=== PATIENT | female | born 1995 | race Caucasian/White ===

== ENCOUNTER 2022-11-05 01:06 | Inpatient (IN) | payer BC ==
[2022-11-05] MEDS ORDERED: Lactated Ringers 1,000 ML IV SCH (12:30)
[2022-11-05] MEDS ORDERED: Lidocaine 1% 30 ML SDV INJECT PRN (12:30)
[2022-11-05] MEDS ORDERED: Sodium Chloride 0.9% 10 ML Syringe FLUSH PRN (12:30)
[2022-11-05] MEDS ORDERED: Misoprostol 400 MCG (4 X 100 MCG TAB) RECTAL PRN (12:30)
[2022-11-05] MEDS ORDERED: Misoprostol 25 MCG (1/4 of 100 MCG) Tab VAG PRN (12:30)
[2022-11-05] MEDS ORDERED: Tranexamic Acid 1,000 MG in Sodium Chloride 0.9% 100 ML IV PRN (12:30)
[2022-11-05] MEDS ORDERED: Acetaminophen 325 MG Tab PO PRN ×2 (12:30)
[2022-11-05] MEDS ORDERED: Ondansetron 4 MG/2 ML SDV IVPUSH PRN (12:30)
[2022-11-05] MEDS ORDERED: Lactated Ringers 1,000 ML IV ONE (12:30)
[2022-11-05] MEDS ORDERED: Oxytocin/Normal Saline 30 UNIT/500 ML BAG IV SCH (12:30)
[2022-11-05] MEDS ORDERED: Carboprost Tromethamine 250 MCG/1 ML Amp IM PRN (12:30)
[2022-11-05] MEDS ORDERED: Misoprostol 50 MCG (1/2 of 100 MCG) Tab VAG PRN (12:30)
[2022-11-05] MEDS ORDERED: Methylergonovine 0.2 MG/1 ML Amp IM PRN (12:30)
[2022-11-05] MEDS ORDERED: Penicillin G Potassium 5 MILLUNITS in Sodium Chloride 0.9% 100 ML IV ONE (14:00)
[2022-11-05] MEDS ORDERED: Phenylephrine HCl In 0.9% NaCl 1 MG/10 ML Syringe IVPUSH PRN (14:42)
[2022-11-05] MEDS ORDERED: ePHEDrine 50 MG/ML SDV IVPUSH PRN (14:42)
[2022-11-05] MEDS ORDERED: Ropivacaine 200 MG in Premix Bag 1 BAG EPIDUR SCH (14:45)
[2022-11-05] MEDS: Penicillin G Potassium 3 MILLUNITS in Sodium Chloride 0.9% 100 ML IV SCH ×2 (18:19→22:22)
[2022-11-05] MEDS ORDERED: metFORMIN 500 MG Tab PO SCH (20:07)
[2022-11-05] MEDS ORDERED: Calcium Carbonate 500 MG Tab.Chew PO PRN (23:47)
[2022-11-06] MEDS ORDERED: Sodium Bicarbonate 4.2% 2.5 MEQ/5 ML SDV ONE (00:11)
[2022-11-06] MEDS ORDERED: Bupivacaine 0.25% 10 ML SDV ONE (00:11)
[2022-11-06] MEDS ORDERED: Lidocaine 2% with EPINEPHrine 1:200,000 20 ML SDV ONE (00:12)
[2022-11-06] MEDS ORDERED: fentaNYL 100 MCG/2 ML SDV ONE (00:53)
[2022-11-06] MEDS ORDERED: Tranexamic Acid 1,000 MG in Sodium Chloride 0.9% 100 ML IV PRN (01:26)
[2022-11-06] MEDS ORDERED: Witch Hazel Medicated Pads 100/Jar TOP PRN (01:26)
[2022-11-06] MEDS ORDERED: Carboprost Tromethamine 250 MCG/1 ML Amp IM PRN (01:26)
[2022-11-06] MEDS ORDERED: Acetaminophen 325 MG Tab PO PRN (01:26)
[2022-11-06] MEDS ORDERED: Simethicone 80 MG Tab.Chew PO PRN (01:26)
[2022-11-06] MEDS ORDERED: Benzocaine/Menthol 20%-0.5% Spray 78 GM Cannister TOP PRN (01:26)
[2022-11-06] MEDS ORDERED: Misoprostol 400 MCG (4 X 100 MCG TAB) RECTAL PRN (01:26)
[2022-11-06] MEDS: Penicillin G Potassium 3 MILLUNITS in Sodium Chloride 0.9% 100 ML IV SCH (02:03)
[2022-11-06] MEDS: FLUoxetine 10 MG Cap PO SCH (08:15)
[2022-11-06] MEDS: Prenatal Multivitamin with Calcium/Folic Acid/Iron Tab PO SCH (08:16)
[2022-11-06] MEDS: Docusate Sodium 100 MG Cap PO PRN ×2 (08:16→21:04)
[2022-11-06] MEDS: Ferrous Sulfate 325 MG Tab PO SCH (08:16)
[2022-11-06] MEDS: Ibuprofen 800 MG Tab PO PRN ×2 (08:17→16:39)
[2022-11-06] MEDS ORDERED: Sodium Bicarbonate 4.2% 2.5 MEQ/5 ML SDV IV ONE (13:17)
[2022-11-06] MEDS ORDERED: Bupivacaine 0.25% 10 ML SDV INJECT ONE (13:17)
[2022-11-06] MEDS ORDERED: fentaNYL 100 MCG/2 ML SDV IVPUSH ONE (13:17)
[2022-11-06] MEDS ORDERED: Lidocaine 1% 5 ML VIAL IV ONE (15:04)
[2022-11-06 20:46] VITALS: BP 107/76; PULSE 77
[2022-11-07] MEDS: Ibuprofen 800 MG Tab PO PRN (02:56)
[2022-11-07] MEDS: Ferrous Sulfate 325 MG Tab PO SCH (09:00)
[2022-11-07] MEDS: Docusate Sodium 100 MG Cap PO PRN (09:00)
[2022-11-07] MEDS: Prenatal Multivitamin with Calcium/Folic Acid/Iron Tab PO SCH (09:00)
[2022-11-07] MEDS: FLUoxetine 10 MG Cap PO SCH (09:00)
== END 2022-11-07 11:55 | disposition home or self-care (01) | DRG 560 ==
LOC: DL.OB 01:06 → OBSVTOIN 11-06 01:06
PROVIDERS: ADMIT Family Medicine; ATTEND Family Medicine
PROC: 10E0XZZ Delivery of Products of Conception, External Approach (ICD-10-PCS; principal; 2022-11-06)
PROC: 3E0P7VZ Introduction of Hormone into Female Reproductive, Via Natural or Artificial Opening (ICD-10-PCS; 2022-11-06)
PROC: 3E0R3BZ Introduction of Anesthetic Agent into Spinal Canal, Percutaneous Approach (ICD-10-PCS; 2022-11-06)
PROC: 00HU33Z Insertion of Infusion Device into Spinal Canal, Percutaneous Approach (ICD-10-PCS; 2022-11-06)
DX: O41.03X0 Oligohydramnios, third trimester, not applicable or unspecified (principal); O24.12 Pre-existing type 2 diabetes mellitus, in childbirth; O99.02 Anemia complicating childbirth; Z37.0 Single live birth; E11.9 Type 2 diabetes mellitus without complications; D50.9 Iron deficiency anemia, unspecified; O70.0 First degree perineal laceration during delivery; Z3A.39 39 weeks gestation of pregnancy
CPT/HCPCS: 01967; 36410; 36415; 51701; 59025; 59409; 82947; 85027; A9270-GY; J2405; J2540; J2590; J2795; J3010; J3490; J7120

== ENCOUNTER 2023-11-29 09:44 | Emergency (ER) | payer BC ==
[2023-11-29 11:21] LABS: APPEARANCE,URINE CLEAR (CLEAR); BILIRUBIN,URINE NEGATIVE (NEGATIVE); COLOR,URINE YELLOW (YELLOW); GLUCOSE,URINE NEGATIVE (NEGATIVE); KETONES,URINE NEGATIVE (NEGATIVE); LEUKOCYTE ESTERASE,URINE NEGATIVE (NEGATIVE); NITRITE,URINE NEGATIVE (NEGATIVE); OCCULT BLOOD,URINE SMALL (NEGATIVE); PROTEIN,URINE NEGATIVE (NEGATIVE); UROBILINOGEN,URINE 0.2 mg/dL (0.2-1.0)
[2023-11-29 11:38] LABS: BACTERIA,URINE RARE /HPF (0-FEW/HPF); EPITHELIAL CELLS,URINE RARE /HPF (NOT SEEN); RBC,URINE 0-5 /HPF (0-5); WBC,URINE NOT SEEN /HPF (0-5/HPF)
[2023-12-02 12:47] LABS: C.TRACHOMATIS BY TMA Negative (Negative); N.GONORRHOEAE BY TMA Negative (Negative); SOURCE Genital
== END 2023-11-29 12:30 | disposition home or self-care (01) ==
LOC: DL.ED 09:44
DX: O02.1 Missed abortion (principal); E11.9 Type 2 diabetes mellitus without complications; Z91.018 Allergy to other foods; Z91.048 Other nonmedicinal substance allergy status; Z79.899 Other long term (current) drug therapy; Z79.84 Long term (current) use of oral hypoglycemic drugs
CPT/HCPCS: 76817; 81001; 87491; 87591; 99284

== ENCOUNTER 2023-12-01 22:58 | Emergency (ER) | payer BC ==
[2023-12-01 23:50] LABS: BASOPHILS PERCENT AUTO 0.3 % (0.0-1.0); EOSINOPHILS PERCENT AUTO 2.8 % (1.0-3.0); HEMATOCRIT 38.2 % (37.0-47.0); HEMOGLOBIN 12.8 g/dL (12.0-16.0); LYMPHOCYTES PERCENT AUTO 31.5 % (20.5-50.1); MEAN CORPUSCULAR HEMOGLOBIN 29.1 pg (27.0-34.0); MEAN CORPUSCULAR HGB CONC 33.5 g/dL (33.0-35.0); MEAN CORPUSCULAR VOLUME 86.8 fL (80-100); MONOCYTES PERCENT AUTO 8.9 % (2-8); NEUTROPHILS PERCENT AUTO 56.5 % (42.2-75.2); PLATELET COUNT,PLT 240 10^3/uL (150-450); WHITE BLOOD CELL COUNT,WBC 7.4 10^3/uL (5.0-10.0)
[2023-12-02] MEDS: Sodium Chloride 0.9% 1,000 ML IV SCH
[2023-12-02] MEDS: Sodium Chloride 0.9% 10 ML Syringe FLUSH PRN (00:05)
[2023-12-02 00:11] VITALS: BP 115/68; PULSE 72
[2023-12-02 00:11] LABS: A/G RATIO 1.1; ALBUMIN 4.1 g/dL (3.4-5.0); BILIRUBIN TOTAL 0.2 mg/dL (0.2-1.0); BUN/CREATININE RATIO 15.3 (No establ ref range); CALCIUM 9.2 mg/dL (8.5-10.1); CREATININE 0.72 mg/dL (0.55-1.02); EST CRCL DRUG DOSING (CG) 91.18 mL/min; PROTEIN TOTAL,TP 7.7 g/dL (6.4-8.2)
== END 2023-12-02 01:00 | disposition home or self-care (01) ==
LOC: DL.ED 22:58
DX: O03.9 Complete or unspecified spontaneous abortion without complication (principal); E11.9 Type 2 diabetes mellitus without complications; K21.9 Gastro-esophageal reflux disease without esophagitis; Z91.018 Allergy to other foods; Z91.048 Other nonmedicinal substance allergy status; Z79.84 Long term (current) use of oral hypoglycemic drugs; Z79.899 Other long term (current) drug therapy
CPT/HCPCS: 36415; 80053; 85025; 99284; J3490; J7030

== ENCOUNTER 2023-12-02 15:23 | Day surgery (SDC) | payer BC ==
[2023-12-02] MEDS: Lactated Ringers 1,000 ML IV SCH (15:40)
[2023-12-02] MEDS: Doxycycline 100 MG in Sodium Chloride 0.9% 100 ML IV ONE (15:51)
[2023-12-02] MEDS ORDERED: Silver Nitrate Applicator Each ONE (16:21)
[2023-12-02] MEDS: Silver Nitrate Applicator Each TOP ONE (16:22)
[2023-12-02] MEDS: Acetaminophen/Codeine 300-30 MG Tab PO ONE (17:16)
[2023-12-02] MEDS: Acetaminophen 325 MG Tab PO ONE (17:16)
[2023-12-02 21:18] VITALS: BP 88/59; PULSE 70
== END 2023-12-02 21:00 | disposition home or self-care (01) ==
LOC: DL.SDS 15:23
PROVIDERS: ATTEND Student in an Organized Health Care Education/Training Program
DX: O03.4 Incomplete spontaneous abortion without complication (principal); F41.9 Anxiety disorder, unspecified; E11.9 Type 2 diabetes mellitus without complications; K21.9 Gastro-esophageal reflux disease without esophagitis; Z91.09 Other allergy status, other than to drugs and biological substances; Z79.899 Other long term (current) drug therapy
CPT/HCPCS: 00940; 36415; 59812; 85018; 85049; A9270; J3490; J7120